=== PATIENT | female | born 1990 | race African-American/Black ===

== ENCOUNTER 2020-04-10 17:47 | Emergency (ER) | payer MEDICAID ==
[~2020-04-10] VITALS: Ht 175.3 cm; Wt 82.0 kg
[2020-04-10] MEDS ORDERED: LIDOCAINE HCL/PF 1% 10 MG/ML 5ML VIAL IJ ONE (19:45)
[2020-04-10] MEDS ORDERED: IBUPROFEN 600MG TABLET PO ONE (19:45)
[2020-04-10 20:30] VITALS: BP 121/70
== END 2020-04-10 20:38 | disposition home or self-care (01) ==
LOC: ER 17:47
DX: L72.3 Sebaceous cyst (principal); H66.41 Suppurative otitis media, unspecified, right ear
CPT/HCPCS: 99283; J3490

== ENCOUNTER 2020-05-15 07:41 | Emergency (ER) | payer MEDICAID ==
[~2020-05-15] VITALS: Ht 167.6 cm; Wt 75.0 kg
[2020-05-15 07:46] VITALS: BP 121/82
[2020-05-15] MEDS ORDERED: MAGNESIUM/ALUMINUM HYDROXIDE/SIMETHICONE 30ML UDC PO STA (07:59)
[2020-05-15] MEDS ORDERED: METOCLOPRAMIDE HCL 10MG/2ML VIAL IV STA (07:59)
[2020-05-15 08:14] LABS: BASOPHILS % 0.6 % (0.0-2.0); EOSINOPHILS % 0.1 % (0.0-5.0); HEMATOCRIT. 39.4 % (36.0-48.0); HEMOGLOBIN. 13.6 g/dL (12.0-16.0); LYMPHOCYTES % 15.8 % (20.0-50.0); MEAN CORPUSCULAR HEMOGLOBIN 33.1 pg (28.0-32.0); MEAN CORPUSCULAR VOLUME 96.1 fL (81.0-99.0); MEAN PLATELET VOLUME 7.5 fl (7.4-10.4); MONOCYTES % 2.4 % (2.0-8.0); NEUTROPHILS % 81.1 % (40.0-76.0); PLATELET 387 x1000/uL (130-400); RED CELL DISTRIBUTION WIDTH 13.8 % (11.6-14.6)
[2020-05-15 08:20] LABS: CHLORIDE 104 mEq/L (98-107)
[2020-05-15 09:02] LABS: HCG SCREEN NEGATIVE
[2020-05-15 09:47] LABS: CLARITY URINE CLOUDY (CLEAR); COLOR URINE YELLOW (YELLOW); KETONES URINE 1+ (NEGATIVE); LEUKOCYTE ESTERASE URINE NEGATIVE (NEGATIVE); NITRITE URINE POSITIVE (NEGATIVE); OCCULT BLOOD URINE NEGATIVE (NEGATIVE); PH URINE >=9.0 (4.5-8.0); PROTEIN URINE 2+ (NEGATIVE); SPECIFIC GRAVITY URINE 1.024 (1.005-1.030)
[2020-05-15 10:12] LABS: *BENZODIAZEPINES SCREEN URINE NEGATIVE (NEGATIVE); *COCAINE SCREEN URINE NEGATIVE (NEGATIVE); METHADONE URINE SCREEN NEGATIVE (NEGATIVE); OPIATES URINE SCREEN NEGATIVE (NEGATIVE)
[2020-05-15 10:13] LABS: *AMPHETAMINES SCREEN URINE NEGATIVE (NEGATIVE); *BARBITURATES SCREEN URINE NEGATIVE (NEGATIVE)
[2020-05-15 10:20] LABS: PHENCYCLIDINE URINE SCREEN NEGATIVE (NEGATIVE)
[2020-05-15 10:21] LABS: CANNABINOID URINE SCREEN PRESUMTIVE POSITIVE (NEGATIVE)
== END 2020-05-15 09:50 | disposition left against medical advice (07) ==
LOC: ER 07:46
DX: R11.2 Nausea with vomiting, unspecified (principal); R10.12 Left upper quadrant pain; F12.10 Cannabis abuse, uncomplicated
CPT/HCPCS: 36415; 76700; 80053; 80305; 81003; 81025; 83690; 84703; 85025; 99284; J2765

== ENCOUNTER 2020-05-16 09:47 | Emergency (ER) | payer MEDICAID ==
[~2020-05-16] VITALS: Ht 167.6 cm; Wt 71.0 kg
[2020-05-16 09:51] VITALS: BP 121/74
== END 2020-05-16 11:32 | disposition left against medical advice (07) ==
LOC: ER 09:47
DX: Z53.21 Procedure and treatment not carried out due to patient leaving prior to being seen by health care provider (principal)
CPT/HCPCS: 93005

== ENCOUNTER 2022-06-08 18:38 | Emergency (ER) | payer MEDICAID ==
[~2022-06-08] VITALS: Ht 175.3 cm; Wt 67.0 kg
[2022-06-08] MEDS ORDERED: IBUP-2029 MT (23:38)
[2022-06-08] MEDS ORDERED: LIDO700A30 TP (23:38)
[2022-06-08] MEDS: IBUPROFEN 600MG TABLET PO ONE ×2 (23:48→23:53)
[2022-06-08] MEDS: CYCLOBENZAPRINE 10MG TABLET PO ONE ×2 (23:49→23:52)
[2022-06-08 23:53] VITALS: BP 106/56
== END 2022-06-08 23:53 | disposition home or self-care (01) ==
LOC: ER 21:04
DX: M62.838 Other muscle spasm (principal); W18.39XA Other fall on same level, initial encounter; Y93.89 Activity, other specified; Y92.89 Other specified places as the place of occurrence of the external cause; Y99.8 Other external cause status
CPT/HCPCS: 81025; 99284